=== PATIENT | male | born 1970 ===

== ENCOUNTER 2023-01-22 11:38 | Outpatient (CLI) | payer OTHER | END 2023-01-22 11:50 | disposition home or self-care (01) | LOC: RAD 11:38 | PROVIDERS: ATTEND Internal Medicine | DX: M25.562 Pain in left knee (principal); I11.9 Hypertensive heart disease without heart failure ==

== ENCOUNTER 2023-02-12 11:00 | Outpatient (CLI) | payer OTHER | END 2023-02-12 11:07 | disposition home or self-care (01) | LOC: MRI 11:00 | PROVIDERS: ATTEND Internal Medicine | DX: M25.562 Pain in left knee (principal); I11.9 Hypertensive heart disease without heart failure | CPT/HCPCS: 73718 ==